=== PATIENT | female | born 2000 | race Caucasian/White ===

== ENCOUNTER 2022-06-30 14:38 | Emergency (ER) | payer BC, OTHER, SELFPAY ==
--- NOTE | 2022-06-30 14:41 | ED.URI ---
HPI - URI/Sore Throat General Chief Complaint: Upper Respiratory Infection Stated Complaint: cough congestion Time Seen by Provider: 06/30/22 14:42 Source: patient and RN notes reviewed History of Present Illness HPI Narrative: patient is a 21-year-old female who presents to urgent care with complaints of cough, nasal congestion, postnasal drainage and headache. Patient states it started on Monday and she does have improvement with DayQuil, NyQuil and ibuprofen. Patient denies any fevers, nausea or vomiting. No other acute complaints. No acute distress noted. Patient aware of the plan of care. Some parts of this dictation were generated by voice recognition software and may contain typographical and/or grammatical inaccuracies. Related Data Allergies Allergy/AdvReac Type Severity Reaction Status Date / Time No Known Allergies Allergy Unverified 08/02/17 12:07 Review of Systems Review of Systems: CONSTITUTIONAL: Denies fever, chills, or sweats. EYES: Denies visual changes, redness, or discharge. ENT: Reports postnasal drainage, sinus congestion CARDIOVASCULAR: Denies chest pain, palpitations, or edema. RESPIRATORY: reports of cough without dyspnea GASTROINTESTINAL: Denies abdominal pain, nausea, vomiting, or diarrhea. GENITOURINARY: Denies dysuria or hematuria. SKIN: Denies rash or itching. MUSCULOSKELETAL: Denies back pain, joint pain, or myalgia. NEUROLOGIC: reports of headache All other systems reviewed are negative, except as documented in HPI. PMFSH Comments At the time of my signature, I reviewed and agree with the nursing past medical, surgical, social, and family history. There is no relevant family history pertinent to the patient complaint. Exam Narrative: GENERAL: This is a well-nourished, well-developed patient, in no apparent distress. HEAD: normocephalic, atraumatic. EYES: PERRL. Sclera clear/white. Vision is grossly intact. EARS: External ears normal, auditory canals clear and without drainage, moderate bilateral eustachian tube dysfunction. TMs normal without perforation. Hearing grossly intact. NOSE: External nose normal with no obvious nasal discharge, nares without redness, no rhinorrhea. THROAT: Mucous membranes moist, posterior pharynx clear. moderate postnasal drainage NECK: Neck supple, non-tender without lymphadenopathy CARDIOVASCULAR: Regular rate and rhythm without murmurs, gallops, or rubs. RESPIRATORY: Clear to auscultation. Breath sounds equal bilaterally. No wheezes, rales, or rhonchi. SKIN: warm, intact with no suspicious lesions or rash, good texture and turgor. NEURO: awake, alert, and oriented to person, place and time. There were no obvious focal neurologic abnormalities. EXTREMITIES: No clubbing, cyanosis, or edema. Course Course Level of Care: Express Care Visit Vital Signs Vital signs: Vital Signs Temperature 98.4 F 06/30/22 14:42 Pulse Rate 85 06/30/22 14:42 Respiratory Rate 20 06/30/22 14:42 Blood Pressure 114/77 06/30/22 14:42 Pulse Oximetry 99 06/30/22 14:42 Oxygen Delivery Room Air 06/30/22 14:42 Temperature 98.4 F 06/30/22 14:42 Pulse Rate 85 06/30/22 14:42 Respiratory Rate 20 06/30/22 14:42 Blood Pressure 114/77 06/30/22 14:42 Pulse Oximetry 99 06/30/22 14:42 Oxygen Delivery Room Air 06/30/22 14:42 reviewed MDM - URI/Sore Throat MDM Narrative Medical decision making narrative: advised patient take a daily antihistamine such as Claritin or Zyrtec. Use Flonase and Benadryl prior to bedtime. Continue Tylenol/ ibuprofen as needed. Use a humidifier at night. Follow-up with your PCP within 2-5 days or for worsening symptoms or failure to improve. Differential Diagnosis Differential diagnosis: Likely upper respiratory infection, croup, otitis media, sinusitis, viral infection, bronchitis, influenza and pharyngitis Critical Care Time Critical Care Time Critical Care Time: No Discharge Plan Discharge Clinic
[2022-06-30 14:42] VITALS: BP 114/77; PULSE 85; RESP 20; TEMP 36.9; O2SAT 99
== END 2022-06-30 15:03 | disposition home or self-care (01) ==
PROVIDERS: Emergency Provider Nurse Practitioner Family
DX: J32.9 Chronic sinusitis, unspecified (principal)
CPT/HCPCS: 99203; G0463

== ENCOUNTER 2022-10-31 09:42 | Emergency (ER) | payer OTHER, SELFPAY ==
[2022-10-31 09:48] VITALS: BP 117/78; PULSE 86; RESP 20; TEMP 37.1; O2SAT 96
--- NOTE | 2022-10-31 10:41 | ED.URI ---
HPI - URI/Sore Throat General Chief Complaint: Upper Respiratory Infection Stated Complaint: sore throat /swollen glands Time Seen by Provider: 10/31/22 10:42 Source: patient, RN notes reviewed and old records reviewed Mode of arrival: ambulatory Limitations: no limitations History of Present Illness HPI Narrative: 21 year old female presents to [facility] care with 2 day history of sore throat with swollen neck glands and some cough.Patient reports that she has not taken any OTC medications for her symptoms. Patient reports that she has not noted any sinus congestion or drainage, denies any ear pain, reports cough is intermittent with no dyspnea noted. Patient states that she has been COVID vaccinated and has had flu shot this season. MD elicited complaint: cough and sore throat Onset (ago): day(s) (2) Pain scale (0-10): 4 Treatments prior to arrival: none Related Data Allergies Allergy/AdvReac Type Severity Reaction Status Date / Time No Known Allergies Allergy Unverified 08/02/17 12:07 Review of Systems Review of Systems: CONSTITUTIONAL: Denies malaise, chills, sweats, or fever. EYES: Denies visual changes, redness, or discharge. ENT: Reports no rhinorrhea, congestion, sinus pain, otalgia positive for sore throat. CARDIOVASCULAR: Denies chest pain, palpitations, or edema. RESPIRATORY: Reports cough.? Denies dyspnea. GASTROINTESTINAL: Denies abdominal pain, nausea, vomiting, diarrhea SKIN: Denies rash or itching. MUSCULOSKELETAL: Denies myalgia. NEUROLOGIC: Denies headache. All systems reviewed & are unremarkable except as noted in HPI and below PMFSH Social History Social History (Updated 11/01/22 @ 08:56 by Mariana Couch NP) Smoking status: Smoker, status unknown Alcohol intake: unknown Substance use: unknown Gender identity (if verbalized by the patient): Female Comments At time of signature, agree with nursing past medical, surgical, social and family history. There is no relevant family history pertinent to the presenting complaint Exam Narrative: GENERAL: Well-appearing, well-nourished, and in no acute distress. HEAD: Normocephalic EYES: PERRLA, conjunctivae clear ENT: Nares clear, turbinates edematous and erythematous, clear discharge. Mucous membranes moist. TM pearly kruger with dull light reflex bilaterally; no tragal tenderness. Oropharynx erythematous without lesions. Tonsils red enlarged and with white exudate, no drooling, no hoarseness, no trismus, uvula midline. NECK: Supple. lymphadenopathy CHEST: Clear to auscultation, breath sounds equal. No wheezing, rhonchi, rales, or stridor. No respiratory distress, speaks in full sentences.intermittent dry cough SAO2 96% on room air HEART: Regular rate and rhythm. No murmur heard. SKIN: Warm, dry, no rash. NEURO: Alert and oriented x3. PSYCH: Normal mood and affect Course Course Emergency Course: Patient is aware of diagnosis, understands and agrees to treatment plan.? Anticipatory guidance given.? Patient agrees to follow-up as directed and is aware of reasons to seek care at the emergency department. Portions of this record may have been created with voice recognition software Level of Care: Express Care Visit Vital Signs Vital signs: Vital Signs Temperature 37.1 C 10/31/22 09:48 Pulse Rate 86 10/31/22 09:48 Respiratory Rate 20 10/31/22 09:48 Blood Pressure 117/78 10/31/22 09:48 Pulse Oximetry 96 10/31/22 09:48 Oxygen Delivery Room Air 10/31/22 09:48 Temperature 37.1 C 10/31/22 09:48 Pulse Rate 86 10/31/22 09:48 Respiratory Rate 20 10/31/22 09:48 Blood Pressure 117/78 10/31/22 09:48 Pulse Oximetry 96 10/31/22 09:48 Oxygen Delivery Room Air 10/31/22 09:48 Reviewed MDM - URI/Sore Throat MDM Narrative Medical decision making narrative: Differential diagnosis considered: [place] virus, strep pharyngitis, allergic rhinitis, upper respiratory tract infec
== END 2022-10-31 10:58 | disposition home or self-care (01) ==
PROVIDERS: Emergency Provider Registered Nurse
DX: J03.90 Acute tonsillitis, unspecified (principal)
CPT/HCPCS: 87081; 87880; 99213; G0463